=== PATIENT | female | born 1945 | race Caucasian/White ===

== ENCOUNTER → 2016-05-28 | Outpatient (CLI) | payer SELFPAY ==
[2016-05-28 07:33] LABS: RED BLOOD COUNT 4.73 M/UL (4.00-5.10); WHITE BLOOD COUNT 8.6 K/UL (4.5-11.0)
== END ==
LOC: LAB 06:52
PROVIDERS: Internal Medicine
DX: E11.9 Type 2 diabetes mellitus without complications (principal); K21.0 Gastro-esophageal reflux disease with esophagitis; E78.5 Hyperlipidemia, unspecified; I10 Essential (primary) hypertension; Z79.899 Other long term (current) drug therapy
CPT/HCPCS: 36415; 80053; 80061; 82043; 82570; 83036; 84443; 85027

== ENCOUNTER → 2020-05-19 | Outpatient (CLI) | payer SELFPAY ==
[~2020-05-19] MED LIST: IRON325 M1 PO
[2020-05-19 08:38] LABS: HEMOGLOBIN 13.2 gm/dl (12.3-15.3); RED BLOOD COUNT 5.87 M/UL (4.00-5.10); WHITE BLOOD COUNT 8.6 K/UL (4.5-11.0)
[2020-05-20 12:14] LABS: CREATININE, URINE 103.3 mg/dL (Not Estab.)
== END ==
LOC: LAB 07:22
PROVIDERS: Physician Assistant
DX: Z13.29 Encounter for screening for other suspected endocrine disorder (principal); E78.5 Hyperlipidemia, unspecified; I10 Essential (primary) hypertension; E55.9 Vitamin D deficiency, unspecified; E53.8 Deficiency of other specified B group vitamins; E11.9 Type 2 diabetes mellitus without complications; D50.9 Iron deficiency anemia, unspecified
CPT/HCPCS: 36415; 80053; 80061; 82043; 82570; 82607; 82746; 83036; 83540; 83550; 84439; 84443; 85025

== ENCOUNTER → 2020-06-16 | Outpatient (CLI) | payer SELFPAY ==
[2020-06-16 08:19] LABS: HEMOGLOBIN 12.7 gm/dl (12.3-15.3); RED BLOOD COUNT 5.41 M/UL (4.00-5.10); WHITE BLOOD COUNT 8.9 K/UL (4.5-11.0)
== END ==
LOC: LAB 07:49
PROVIDERS: Internal Medicine
DX: D50.9 Iron deficiency anemia, unspecified (principal); I10 Essential (primary) hypertension
CPT/HCPCS: 36415; 80048; 82728; 83540; 83550; 85025

== ENCOUNTER → 2020-07-08 | Outpatient (CLI) | payer SELFPAY ==
[~2020-07-08] VITALS: Ht 160 cm; Wt 84.8 kg
== END ==
LOC: OPSV 07-05 11:00
DX: D50.9 Iron deficiency anemia, unspecified (principal)
CPT/HCPCS: 96365; J1439

== ENCOUNTER → 2020-07-20 | Outpatient (CLI) | payer SELFPAY | LOC: OPSV 07-18 09:00 | DX: D50.9 Iron deficiency anemia, unspecified (principal) | CPT/HCPCS: 96365; J1439 ==

== ENCOUNTER → 2020-08-29 | Outpatient (CLI) | payer MEDICAID ==
[2020-08-29 08:07] LABS: HEMOGLOBIN 14.9 gm/dl (12.3-15.3); RED BLOOD COUNT 5.86 M/UL (4.00-5.10); WHITE BLOOD COUNT 7.3 K/UL (4.5-11.0)
== END ==
LOC: LAB 06:58
PROVIDERS: Internal Medicine
DX: D50.9 Iron deficiency anemia, unspecified (principal); R06.09 Other forms of dyspnea; E78.5 Hyperlipidemia, unspecified; E11.9 Type 2 diabetes mellitus without complications; I10 Essential (primary) hypertension
CPT/HCPCS: 36415; 80053; 80061; 82728; 83036; 83540; 83550; 83880; 85025

== ENCOUNTER → 2020-09-08 | Outpatient (CLI) | payer MEDICAID | LOC: LAB 07:35 | PROVIDERS: Internal Medicine | DX: I50.9 Heart failure, unspecified (principal) | CPT/HCPCS: 36415; 80053; 83880 ==

== ENCOUNTER → 2020-09-19 | Outpatient (CLI) | payer OTHER | LOC: ECHO 10:24 | DX: R06.09 Other forms of dyspnea (principal) | CPT/HCPCS: ECHO; 93306 ==

== ENCOUNTER → 2021-04-03 | Outpatient (CLI) | payer SELFPAY ==
[2021-04-03 09:14] LABS: HEMOGLOBIN 15.8 gm/dl (12.3-15.3); RED BLOOD COUNT 5.84 M/UL (4.00-5.10); WHITE BLOOD COUNT 8.3 K/UL (4.5-11.0)
[2021-04-04 07:12] LABS: A/G RATIO 1.1 (1.2-2.2); ALKALINE PHOSPHATASE, S 159 IU/L (44-121); ALT (SGPT) 13 IU/L (0-32); AST (SGOT) 10 IU/L (0-40); BILIRUBIN, TOTAL 0.7 mg/dL (0.0-1.2); BUN 19 mg/dL (8-27); BUN/CREATININE RATIO 11 (12-28); CARBON DIOXIDE, TOTAL 25 mmol/L (20-29); CHLORIDE, SERUM 101 mmol/L (96-106); CREATININE, SERUM 1.68 mg/dL (0.57-1.00); EGFR IF AFRICN AM 34 (>59); EGFR IF NONAFRICN AM 29 (>59); ESTIM. AVG GLU (EAG) 134 mg/dL (.); GLOBULIN, TOTAL 3.4 g/dL (1.5-4.5); GLUCOSE, SERUM 111 mg/dL (65-99); HEMOGLOBIN A1C 6.3 % (4.8-5.6); POTASSIUM, SERUM 4.9 mmol/L (3.5-5.2); PROTEIN, TOTAL, SERUM 7.3 g/dL (6.0-8.5); SODIUM, SERUM 139 mmol/L (134-144)
[2021-04-04 08:13] LABS: CHOLESTEROL, TOTAL 160 mg/dL (100-199); CREATININE, URINE 54.2 mg/dL (Not Estab.); FERRITIN 318 ng/mL (15-150); HDL CHOLESTEROL 42 mg/dL (>39); IRON BIND.CAP.(TIBC) 242 ug/dL (250-450); IRON SATURATION 39 % (15-55); IRON, SERUM 94 ug/dL (27-139); LDL CHOLESTEROL CALC 97 mg/dL (0-99); LDL/HDL RATIO 2.3 ratio (0.0-3.2); T. CHOL/HDL RATIO 3.8 ratio (0.0-4.4); TRIGLYCERIDES 114 mg/dL (0-149); UIBC 148 ug/dL (118-369); VITAMIN D, 25-HYDROXY 49.6 ng/mL (30.0-100.0)
== END ==
LOC: LAB 07:38
PROVIDERS: Internal Medicine
DX: E78.5 Hyperlipidemia, unspecified (principal); I12.9 Hypertensive chronic kidney disease with stage 1 through stage 4 chronic kidney disease, or unspecified chronic kidney disease; E11.22 Type 2 diabetes mellitus with diabetic chronic kidney disease; N18.9 Chronic kidney disease, unspecified; D63.1 Anemia in chronic kidney disease; R53.83 Other fatigue; E03.9 Hypothyroidism, unspecified; E55.9 Vitamin D deficiency, unspecified; D51.8 Other vitamin B12 deficiency anemias
CPT/HCPCS: 36415; 80053; 80061; 82043; 82570; 82607; 82728; 82746; 83036; 83540; 83550; 84439; 84443; 85025

== ENCOUNTER → 2021-08-23 | Outpatient (CLI) | payer OTHER ==
[2021-08-23 09:22] LABS: HEMOGLOBIN 16.2 gm/dl (12.3-15.3); RED BLOOD COUNT 6.04 M/UL (4.00-5.10); WHITE BLOOD COUNT 6.5 K/UL (4.5-11.0)
[2021-08-24 11:16] LABS: CREATININE, URINE 96.9 mg/dL (Not Estab.)
== END ==
LOC: LAB 07:19
PROVIDERS: Internal Medicine
DX: E55.9 Vitamin D deficiency, unspecified (principal); E53.8 Deficiency of other specified B group vitamins; E11.9 Type 2 diabetes mellitus without complications; D50.9 Iron deficiency anemia, unspecified; I10 Essential (primary) hypertension
CPT/HCPCS: 36415; 80053; 80061; 82043; 82570; 82607; 82728; 82746; 83036; 83540; 83550; 84439; 84443; 85025

== ENCOUNTER → 2021-11-29 | Outpatient (CLI) | payer OTHER | LOC: LAB 07:23 | PROVIDERS: Internal Medicine | DX: E83.52 Hypercalcemia (principal) | CPT/HCPCS: 36415; 80048; 82330; 83970 ==

== ENCOUNTER 2021-11-30 15:12 | Emergency (ER) | payer MEDICARE, OTHER | END 2021-11-30 19:00 | disposition home or self-care (01) | LOC: ER1 15:12 | DX: S01.81XA Laceration without foreign body of other part of head, initial encounter (principal); I10 Essential (primary) hypertension; E11.9 Type 2 diabetes mellitus without complications; Z79.84 Long term (current) use of oral hypoglycemic drugs; Z79.899 Other long term (current) drug therapy; W01.10XA Fall on same level from slipping, tripping and stumbling with subsequent striking against unspecified object, initial encounter; Y92.009 Unspecified place in unspecified non-institutional (private) residence as the place of occurrence of the external cause; Z23 Encounter for immunization | CPT/HCPCS: 12011; 70450; 90471; 90714; 99283 ==